=== PATIENT | male | born 1990 | race Two or more races ===

== ENCOUNTER 2018-12-28 20:39 | Emergency (ER) | payer OTHER ==
--- NOTE | 2018-12-28 20:50 | EDPHY ---
H & P Stated Complaint: heroin OD - Personal History Current Tetanus/Diphtheria Vaccine: Unsure - Medical/Surgical History Other PMH: unobtainable - Social History Smoking Status: Unknown if ever smoked Time Seen by Provider: 12/28/18 20:47 HPI/ROS: CHIEF COMPLAINT: Heroin overdose, respiratory arrest Limitations: Altered mental status, not answering questions HISTORY OF PRESENT ILLNESS: 28-year-old male presents after a heroin overdose. He initially went to the police department and then collapsed. Please gave him Narcan 2 mg intranasally. On EMS arrival, he was unresponsive and apneic. He was bag ventilated. A right EJ IV was placed and he was given Narcan 2 mg IV. He gradually woke up and began breathing. He is now breathing spontaneously, though remains lethargic. REVIEW OF SYSTEMS: Unable to obtain (Becky Boyce) - Physical Exam Exam: General Appearance: Drowsy, opens eyes to voice, no verbal response to questioning Eyes: Pupils equal and round, 3 mm, no conjunctival pallor or injection ENT, Mouth: Mucous membranes moist Neck: Normal inspection Respiratory: Lungs are clear to auscultation anteriorly Cardiovascular: Regular rate and rhythm Gastrointestinal: Abdomen is soft Neurological: Drowsy, nonfocal exam Skin: Warm and dry Extremities: Multiple track jeffery Psychiatric: Flat affect (Becky Boyce) Constitutional: Initial Vital Signs Temperature (C) 36.5 C 12/28/18 20:41 Heart Rate 77 12/28/18 20:41 Respiratory Rate 12 12/28/18 20:41 Blood Pressure 120/88 H 12/28/18 20:41 O2 Sat (%) 100 12/28/18 20:41 O2 Delivery Mode Room Air O2 (L/minute) 2 Allergies/Adverse Reactions: Unable to Assess Allergy (Unverified 12/28/18 20:43) Home Medications: Medication Instructions Recorded Unobtainable 12/28/18 Medical Decision Making - Diagnostics EKG Interpretation: EKG interpreted by me reveals normal sinus rhythm, rate 69, LVH. Interpretation : Abnormal EKG. (Becky Boyce) Imaging Results: Impression: 1. No acute intracranial abnormality identified. 2. Minimal paranasal sinus mucosal changes without air-fluid levels. ELECTRONICALLY SIGNED BY: Logan Richmond DO Dec 29, 2018 1:14:40 AM MDT (Jamal Sprague) ED Course/Re-evaluation: This pt presents after a heroin overdose, now breathing spontaneously after Narcan 4 mg. Will observe. Likely polysubstance abuse. 10pm: opens eyes spontaneously, quickly falls back to sleep, snoring. 1030pm: obtunded, arouses to painful stimuli, pupils 3mm, maintaining airway. 11pm: signed over to Dr. Sprague at shift change. (Becky Boyce) Other Provider: [address] Boyce pending improvement in mental status. 0015 tox screen noted is negative for opioids, positive for amphetamines and marijuana only. Per EMS patient had partially responded to Narcan. Patient's blood alcohol is 0. Will obtain CT scan of the head to rule out intracranial bleed. 0115 CT scan of the head is negative for acute intracranial bleed. I suspect the symptoms are secondary to possible seizure but more likely secondary to reaction after a meth binge. Patient is improving. Will continue to monitor. 0400 patient's mental status has improved. He is answering questions and ambulating in the department. 0600 patient up and ambulating unassisted emergency department. Awake Alert. Will discharge with outpatient follow-up. (Jamal Sprague) - Data Points Laboratory Results: Laboratory Results 12/28/18 22:43 12/28/18 22:43 12/29/18 12/28/18 12/28/18 00:01 22:43 22:43 WBC 11.61 10^3/uL H 10^3/uL (3.80-9.50) RBC 4.82 10^6/uL 10^6/uL (4.40-6.38) Hgb 15.3 g/dL g/dL (13.7-17.5) Hct 43.9 % % (40.0-51.0) MCV 91.1 fL fL (81.5-99.8) MCH 31.7 pg pg (27.9-34.1) MCHC 34.9 g/dL g/dL (32.4-36.7) RDW 12.9 % % (11.5-15.2) Plt Count 261 10^3/uL 10^3/uL (150-400) MPV 10.4 fL fL (8.7-11.7) Neut % (Auto) 75.3 % H % (39.3-74.2) Lymph % (Auto) 14.1 % L % (15.0-45.0) Wilkes % (Auto) 6.8 % % (4.5-13.0) Eos % (Auto) 3.1 % % (0.6-7.6) Baso % (Auto) 0.4 % % (0.3-1.7) Nucleat RBC Rel Count 0.0 % % (0.0-0.2) Absolute Neuts (auto) 8.74 10^3/uL H 10^3/uL (1.70-6.50) Absolute Lymphs (auto) 1.64 10^3/uL 10^3/uL (1.00-3.00) Absolute Monos (auto) 0.79 10^3/uL 10^3/uL (0.30-0.80) Absolute Eos (auto) 0.36 10^3/uL 10^3/uL (0.03-0.40) Absolute Basos (auto) 0.05 10^3/uL 10^3/uL (0.02-0.10) Absolute Nucleated RBC 0.00 10^3/uL 10^3/uL (0-0.01) Immature Gran % 0.3 % % (0.0-1.1) Immature Gran # 0.03 10^3/uL 10^3/uL (0.00-0.10) Sodium 137 mEq/L mEq/L (135-145) Potassium 3.3 mEq/L L mEq/L (3.5-5.2) Chloride 108 mEq/L mEq/L (97-110) Carbon Dioxide 22 mEq/l mEq/l (22-31) Anion Gap 7 mEq/L mEq/L (6-14) BUN 9 mg/dL mg/dL (7-23) Creatinine 0.6 mg/dL L mg/dL (0.7-1.3) Estimated GFR > 60 Glucose 85 mg/dL mg/dL (70-100) Calcium 8.4 mg/dL L mg/dL (8.5-10.4) Urine Opiates Screen NEGATIVE (NEGATIVE) Urine Barbiturates NEGATIVE (NEGATIVE) Ur Phencyclidine Scrn NEGATIVE (NEGATIVE) Ur Amphetamine Screen NON-NEGATIVE H (NEGATIVE) U Benzodiazepines Scrn NEGATIVE (NEGATIVE) Urine Cocaine Screen NEGATIVE (NEGATIVE) U Marijuana (THC) Screen NON-NEGATIVE H (NEGATIVE) Ethyl Alcohol < 10 mg/dL mg/dL (0-10) Departure - Departure Disposition: Home, Routine, Self-Care Clinical Impression: Polysubstance abuse Condition: Good Instructions: Polysubstance Abuse (ED) Referrals: [facility],. [Clinic] - As per Instructions
[2018-12-28 22:55] LABS: PLATELET COUNT 261 10^3/uL (150-400)
[2018-12-29 06:34] VITALS: BP 124/79
== END 2018-12-29 06:33 | disposition home or self-care (01) ==
LOC: EDUNIT#
DX: T40.1X1A Poisoning by heroin, accidental (unintentional), initial encounter (principal); R09.2 Respiratory arrest
CPT/HCPCS: 80305; G0480